=== PATIENT | female | born 1955 | race African-American/Black ===

== ENCOUNTER 2024-01-22 01:08 | Emergency (ER) | payer MEDICARE, MEDICAID ==
[~2024-01-22] VITALS: Ht 165.1 cm; Wt 63.0 kg
[~2024-01-22 01:08] MED LIST: AMIT25TA9 PO; AMLO5TAB4 PO; ASPI-1497 PO; CODE118S2 PO; FERR-63 PO; HYDR25TA PO; IBUP-2030 PO; OMEP40CA20 PO; TAMS0.4C31 PO
[2024-01-22 01:13] VITALS: O2SAT 98
[2024-01-22 02:04] VITALS: TEMP 97.5
[2024-01-22 02:57] LABS: BASOPHILS % 1.2 % (0.0-2.0); EOSINOPHILS % 2.7 % (0.0-5.0); HEMATOCRIT. 22.2 % (36.0-48.0); MEAN CORPUSCULAR HEMOGLOBIN 22.8 pg (28.0-32.0); MEAN CORPUSCULAR HGB CONC 30.6 g/dL (31.0-37.0); MEAN CORPUSCULAR VOLUME 74.5 fL (81.0-99.0); MEAN PLATELET VOLUME 8.7 fl (7.4-10.4); MONOCYTES % 11.7 % (2.0-8.0); NEUTROPHILS % 43.4 % (40.0-76.0); PLATELET 355 x1000/uL (130-400); RED BLOOD CELL COUNT 2.98 mill/uL (4.2-5.4); RED CELL DISTRIBUTION WIDTH 21.4 % (11.6-14.6); WHITE BLOOD COUNT 7.4 x1000/uL (4.5-11.0)
[2024-01-22 03:03] LABS: DIFFERENTIAL COMMENT 1; HEMOGLOBIN. 6.8 g/dL (12.0-16.0)
[2024-01-22 03:11] LABS: ALANINE AMINOTRANSFERASE 21 IU/L (10-49); ALBUMIN 4.2 g/dL (3.2-4.8); ASPARTATE AMINOTRANSFERASE 29 IU/L (<34); BILIRUBIN TOTAL 0.2 mg/dL (0.1-1.0); CALCIUM 8.7 mg/dL (8.7-10.4); CARBON DIOXIDE 20 mEq/L (21-32); CHLORIDE 107 mEq/L (98-107); CREATININE 3.4 mg/dL (0.6-1.0); GLUCOSE 86 mg/dL (70-105); POTASSIUM 3.6 mEq/L (3.5-5.1); PROTEIN TOTAL 7.2 g/dL (6.0-8.3); SODIUM 137 mEq/L (136-145); TROPONIN I HIGH SENSITIVITY 15 ng/L (3.0-34); UREA NITROGEN BLOOD 39 mg/dL (9-23)
[2024-01-22 06:52] VITALS: BP 118/54; PULSE 56; RESP 20
[2024-01-22] MEDS: KETOROLAC 15MG/ML VIAL IV NR (06:52)
== END 2024-01-22 08:50 | disposition left against medical advice (07) ==
LOC: ER 01:08 → CANBEDREQ 08:27 → ER 08:50
DX: R07.9 Chest pain, unspecified (principal); N19 Unspecified kidney failure; D64.9 Anemia, unspecified; I25.2 Old myocardial infarction; I13.0 Hypertensive heart and chronic kidney disease with heart failure and stage 1 through stage 4 chronic kidney disease, or unspecified chronic kidney disease; I50.9 Heart failure, unspecified; E11.9 Type 2 diabetes mellitus without complications; Z88.8 Allergy status to other drugs, medicaments and biological substances
CPT/HCPCS: 99285; 96374; 70450; 71045; 80053; 83880; 85025; 84484; 36415; 93005; J1885

== ENCOUNTER 2024-04-08 13:09 | Emergency (ER) | payer MEDICARE, MEDICAID ==
[~2024-04-08] VITALS: Ht 160 cm; Wt 76.0 kg
[2024-04-08 13:22] VITALS: BP 139/74; PULSE 64; RESP 16; O2SAT 98
[2024-04-08 15:34] VITALS: TEMP 98.7
[2024-04-08] MEDS: ACETAMINOPHEN 325MG TABLET PO NR (15:34)
[2024-04-08 16:05] LABS: BASOPHILS % 0.5 % (0.0-2.0); DIFFERENTIAL COMMENT 0; EOSINOPHILS % 1.5 % (0.0-5.0); HEMATOCRIT. 40.5 % (36.0-48.0); HEMOGLOBIN. 12.8 g/dL (12.0-16.0); LYMPHOCYTES % 30.7 % (20.0-50.0); MEAN CORPUSCULAR HGB CONC 31.6 g/dL (31.0-37.0); MEAN CORPUSCULAR VOLUME 82.2 fL (81.0-99.0); MEAN PLATELET VOLUME 9.1 fl (7.4-10.4); MONOCYTES % 10.7 % (2.0-8.0); NEUTROPHILS % 56.6 % (40.0-76.0); PLATELET 330 x1000/uL (130-400); RED BLOOD CELL COUNT 4.93 mill/uL (4.2-5.4); RED CELL DISTRIBUTION WIDTH 20.4 % (11.6-14.6); WHITE BLOOD COUNT 7.3 x1000/uL (4.5-11.0)
[2024-04-08 16:10] LABS: CHLORIDE 109 mEq/L (98-107); POTASSIUM 3.6 mEq/L (3.5-5.1); SODIUM 140 mEq/L (136-145)
[2024-04-08 16:11] LABS: CARBON DIOXIDE 25 mEq/L (21-32)
[2024-04-08 16:12] LABS: CALCIUM 9.7 mg/dL (8.7-10.4)
[2024-04-08 16:15] LABS: PROTHROMBIN TIME 11.2 sec (9.6-11.0)
[2024-04-08 16:16] LABS: GLUCOSE 117 mg/dL (70-105)
[2024-04-08 16:17] LABS: TROPONIN I HIGH SENSITIVITY 16 ng/L (3.0-34); UREA NITROGEN BLOOD 23 mg/dL (9-23)
[2024-04-08 16:18] LABS: ALANINE AMINOTRANSFERASE 22 IU/L (10-49); ALBUMIN 4.5 g/dL (3.2-4.8); ASPARTATE AMINOTRANSFERASE 27 IU/L (<34)
[2024-04-08 16:19] LABS: BILIRUBIN TOTAL 0.2 mg/dL (0.1-1.0); PROTEIN TOTAL 8.8 g/dL (6.0-8.3)
[2024-04-08 17:13] LABS: CREATININE 1.8 mg/dL (0.6-1.0)
[2024-04-08 20:37] LABS: CLARITY URINE CLEAR (CLEAR); COLOR URINE YELLOW (YELLOW); GLUCOSE URINE 3+ (NEGATIVE); KETONES URINE NEGATIVE (NEGATIVE); LEUKOCYTE ESTERASE URINE NEGATIVE (NEGATIVE); NITRITE URINE NEGATIVE (NEGATIVE); OCCULT BLOOD URINE NEGATIVE (NEGATIVE); PH URINE 5.5 (4.5-8.0); PROTEIN URINE 2+ (NEGATIVE); SPECIFIC GRAVITY URINE 1.022 (1.005-1.030); UROBILINOGEN URINE 0.2 E.U./dL (0.2-1.0)
[2024-04-08 20:56] LABS: BACTERIA URINE 1+; RBC URINE 0-2 /hpf (0-2); SQUAMOUS EPITHELIAL CELL URINE 1+ /lpf (RARE/1+); WBC URINE 0-2 /hpf (0-2)
== END 2024-04-08 23:19 | disposition left against medical advice (07) ==
LOC: ER 13:09
DX: M25.511 Pain in right shoulder (principal); I11.0 Hypertensive heart disease with heart failure; I50.9 Heart failure, unspecified; E11.9 Type 2 diabetes mellitus without complications; I25.2 Old myocardial infarction
CPT/HCPCS: 36415; 71045; 80053; 81003; 84484; 85025; 99284

== ENCOUNTER → 2024-08-19 | Emergency (ER) | payer MEDICARE, OTHER ==
[~2024-08-19] VITALS: Ht 167.6 cm; Wt 80.0 kg
[~2024-08-19] MED LIST changes: -ASPI-1497 PO; -IBUP-2030 PO; +P20 MT
[2024-08-19 13:28] VITALS: O2SAT 98
[2024-08-19 13:57] LABS: CLARITY URINE CLEAR (CLEAR); COLOR URINE YELLOW (YELLOW); GLUCOSE URINE 3+ (NEGATIVE); KETONES URINE NEGATIVE (NEGATIVE); LEUKOCYTE ESTERASE URINE 2+ (NEGATIVE); NITRITE URINE NEGATIVE (NEGATIVE); OCCULT BLOOD URINE 1+ (NEGATIVE); PH URINE 5.5 (4.5-8.0); PROTEIN URINE TRACE (NEGATIVE); SPECIFIC GRAVITY URINE 1.016 (1.005-1.030); UROBILINOGEN URINE 0.2 E.U./dL (0.2-1.0)
[2024-08-19 14:06] LABS: BACTERIA URINE 2+; SQUAMOUS EPITHELIAL CELL URINE 1+ /lpf (RARE/1+); WBC URINE 25-50 /hpf (0-2)
[2024-08-19] MEDS: HYDROCODONE/ACETAMINOPHEN 5/325MG TABLET PO STA (14:14)
[2024-08-19 15:21] LABS: CARBON DIOXIDE 24 mEq/L (21-32); CHLORIDE 105 mEq/L (98-107); POTASSIUM 3.4 mEq/L (3.5-5.1); SODIUM 139 mEq/L (136-145)
[2024-08-19 15:22] LABS: BASOPHILS % 0.5 % (0.0-2.0); CALCIUM 9.3 mg/dL (8.7-10.4); EOSINOPHILS % 0.2 % (0.0-5.0); HEMATOCRIT. 41.3 % (36.0-48.0); HEMOGLOBIN. 12.9 g/dL (12.0-16.0); MEAN CORPUSCULAR HGB CONC 31.2 g/dL (31.0-37.0); MEAN CORPUSCULAR VOLUME 83.3 fL (81.0-99.0); MEAN PLATELET VOLUME 9.3 fl (7.4-10.4); MONOCYTES % 8.8 % (2.0-8.0); NEUTROPHILS % 78.5 % (40.0-76.0); PLATELET 281 x1000/uL (130-400); RED BLOOD CELL COUNT 4.95 mill/uL (4.2-5.4); RED CELL DISTRIBUTION WIDTH 18.9 % (11.6-14.6)
[2024-08-19 15:27] LABS: GLUCOSE 134 mg/dL (70-105); TROPONIN I HIGH SENSITIVITY 25 ng/L (3.0-34); UREA NITROGEN BLOOD 25 mg/dL (9-23)
[2024-08-19 15:28] LABS: ALANINE AMINOTRANSFERASE 45 IU/L (10-49); ALBUMIN 4.2 g/dL (3.2-4.8); ASPARTATE AMINOTRANSFERASE 46 IU/L (<34)
[2024-08-19 15:29] LABS: BILIRUBIN DIRECT 0.1 mg/dL (<=3.0); BILIRUBIN TOTAL 0.6 mg/dL (0.1-1.0); PROTEIN TOTAL 7.9 g/dL (6.0-8.3)
[2024-08-19 15:30] LABS: PROTHROMBIN TIME 11.4 sec (9.6-11.0)
[2024-08-19 15:39] LABS: ETHANOL BLOOD < 10 mg/dL (<10)
[2024-08-19] MEDS: CEFTRIAXONE 1GM/50ML 50 ML IV ONE (17:37)
[2024-08-19] MEDS: SODIUM CHLORIDE 0.9% 1,000 ML IV ONE (17:37)
[2024-08-19] MEDS: MORPHINE SULFATE 4 MG/ML INJ (FOR IV/IM USE) IV ONE (17:43)
[2024-08-19] MEDS: ONDANSETRON HCL 4MG/2ML INJ IV ONE (17:58)
[2024-08-19 18:02] LABS: TROPONIN I HIGH SENSITIVITY 27 ng/L (3.0-34)
[2024-08-19 20:15] VITALS: TEMP 37.05852
[2024-08-19] MEDS: POTASSIUM CHLORIDE 20MEQ TABLET SR PO NR (21:04)
[2024-08-19 22:19] VITALS: BP 111/85; PULSE 61; RESP 16; O2SAT 95
[2024-08-20 09:13] LABS: *AMPHETAMINES SCREEN URINE NEGATIVE (NEGATIVE)
[2024-08-20 09:14] LABS: *BARBITURATES SCREEN URINE NEGATIVE (NEGATIVE); *BENZODIAZEPINES SCREEN URINE PRESUMPTIVE POSITIVE (NEGATIVE); *COCAINE SCREEN URINE NEGATIVE (NEGATIVE); CANNABINOID URINE SCREEN NEGATIVE (NEGATIVE); ECSTASY MDMA SCREEN URINE NEGATIVE (NEGATIVE); METHADONE URINE SCREEN NEGATIVE (NEGATIVE); OPIATES URINE SCREEN NEGATIVE (NEGATIVE); PHENCYCLIDINE URINE SCREEN NEGATIVE (NEGATIVE)
== END ==
LOC: ER 13:26 → EDBEDREQ 17:25
DX: R10.9 Unspecified abdominal pain (principal); N19 Unspecified kidney failure; E78.00 Pure hypercholesterolemia, unspecified; I11.0 Hypertensive heart disease with heart failure; I50.9 Heart failure, unspecified; E11.9 Type 2 diabetes mellitus without complications; Z79.899 Other long term (current) drug therapy; Z88.6 Allergy status to analgesic agent; Z88.1 Allergy status to other antibiotic agents; Z88.8 Allergy status to other drugs, medicaments and biological substances
CPT/HCPCS: 80076; 80305; 80048; 81003; 80320; 83690; 85025; 85610; 87086; 84484; 36415; 74176; 96365; 96375; 99285; J0696; J2405; J2270; G0480